=== PATIENT | female | born 1990 | race African-American/Black ===

== ENCOUNTER 2024-12-12 08:20 | Emergency (ER) | payer SELFPAY ==
[~2024-12-12] VITALS: Ht 167.6 cm; Wt 64.0 kg
[2024-12-12 09:22] VITALS: O2SAT 99
[2024-12-12 09:22] LABS: BASOPHILS % 0.3 % (0.0-2.0); DIFFERENTIAL COMMENT 0; EOSINOPHILS % 0.4 % (0.0-5.0); HEMATOCRIT. 37.4 % (36.0-48.0); HEMOGLOBIN. 12.3 g/dL (12.0-16.0); LYMPHOCYTES % 17.2 % (20.0-50.0); MEAN CORPUSCULAR HEMOGLOBIN 33.9 pg (28.0-32.0); MEAN CORPUSCULAR HGB CONC 32.8 g/dL (31.0-37.0); MEAN CORPUSCULAR VOLUME 103.1 fL (81.0-99.0); MEAN PLATELET VOLUME 9.1 fl (7.4-10.4); MONOCYTES % 6.2 % (2.0-8.0); NEUTROPHILS % 75.9 % (40.0-76.0); PLATELET 180 x1000/uL (130-400); RED BLOOD CELL COUNT 3.63 mill/uL (4.2-5.4); WHITE BLOOD COUNT 5.3 x1000/uL (4.5-11.0)
[2024-12-12] MEDS: MIDAZOLAM HCL 2 MG/2 ML VIAL IM ONE (09:22)
[2024-12-12 09:24] LABS: HCG SCREEN NEGATIVE
[2024-12-12 09:25] LABS: CHLORIDE 108 mEq/L (98-107); POTASSIUM 3.6 mEq/L (3.5-5.1); SODIUM 141 mEq/L (136-145)
[2024-12-12 09:26] LABS: CALCIUM 9.6 mg/dL (8.7-10.4); CARBON DIOXIDE 19 mEq/L (21-32)
[2024-12-12 09:31] LABS: CREATININE 0.7 mg/dL (0.6-1.0); GLUCOSE 111 mg/dL (70-105); UREA NITROGEN BLOOD 8 mg/dL (9-23)
[2024-12-12 09:33] LABS: ALANINE AMINOTRANSFERASE 78 IU/L (10-49); ASPARTATE AMINOTRANSFERASE 74 IU/L (<34); BILIRUBIN DIRECT 0.3 mg/dL (<=3.0)
[2024-12-12 09:34] LABS: BILIRUBIN TOTAL 0.8 mg/dL (0.1-1.0); PROTEIN TOTAL 7.3 g/dL (6.0-8.3)
[2024-12-12] MEDS: OLANZAPINE 10 MG/VIAL IM ONE (09:35)
[2024-12-12] MEDS: SODIUM CHLORIDE 0.9% 1,000 ML IV ONE (09:35)
[2024-12-12 09:40] LABS: ETHANOL BLOOD < 10 mg/dL (<10); TROPONIN I HIGH SENSITIVITY < 4 ng/L (3.0-34)
[2024-12-12 10:02] LABS: CLARITY URINE CLEAR (CLEAR); COLOR URINE YELLOW (YELLOW); GLUCOSE URINE NEGATIVE (NEGATIVE); KETONES URINE 1+ (NEGATIVE); LEUKOCYTE ESTERASE URINE NEGATIVE (NEGATIVE); NITRITE URINE NEGATIVE (NEGATIVE); OCCULT BLOOD URINE NEGATIVE (NEGATIVE); PROTEIN URINE TRACE (NEGATIVE)
[2024-12-12 10:16] LABS: *AMPHETAMINES SCREEN URINE NEGATIVE (NEGATIVE); *BARBITURATES SCREEN URINE NEGATIVE (NEGATIVE); *BENZODIAZEPINES SCREEN URINE NEGATIVE (NEGATIVE); *COCAINE SCREEN URINE NEGATIVE (NEGATIVE); CANNABINOID URINE SCREEN PRESUMPTIVE POSITIVE (NEGATIVE); METHADONE URINE SCREEN NEGATIVE (NEGATIVE); OPIATES URINE SCREEN NEGATIVE (NEGATIVE); PHENCYCLIDINE URINE SCREEN NEGATIVE (NEGATIVE)
[2024-12-12 10:17] LABS: ECSTASY MDMA SCREEN URINE NEGATIVE (NEGATIVE)
[2024-12-12 10:25] LABS: BACTERIA URINE 1+; SQUAMOUS EPITHELIAL CELL URINE 1+ /lpf (RARE/1+); WBC URINE 0-2 /hpf (0-2); YEAST URINE NONE SEEN
[2024-12-12 13:24] LABS: TROPONIN I HIGH SENSITIVITY < 4 ng/L (3.0-34)
[2024-12-12 16:27] LABS: TROPONIN I HIGH SENSITIVITY < 4 ng/L (3.0-34)
[2024-12-12 19:57] VITALS: BP 106/67; PULSE 77; RESP 15; TEMP 36.89184; O2SAT 99
== END 2024-12-12 20:01 | disposition left against medical advice (07) ==
LOC: ER 08:34
DX: R46.2 Strange and inexplicable behavior (principal); Z20.822 Contact with and (suspected) exposure to COVID-19
CPT/HCPCS: 80076; 80305; 80048; 81003; 80307; 80329; 80320; 84703; 83880; 85025; 84484; 36415; 71045; 93005; 96360; 96372; 99285; 87426; J3490; J2250; J7030; Z7610; A4606; G0480